=== PATIENT | male | born 1975 | race Caucasian/White ===

== ENCOUNTER 2021-09-14 08:44 | Outpatient (REF) | payer BC, SELFPAY ==
[2021-09-14 09:41] LABS: Basophils Percent Auto 0.5 % (0-2); Eosinophils Absolute Auto 0.1 X10*3/uL (0.0-0.4); Eosinophils Percent Auto 2.5 % (0-4); Hematocrit 47.4 % (42.0-52.0); Hemoglobin 15.6 g/dl (14.0-18.0); Imm Gran Abs Auto 0.02 X10*3/uL (0.00-0.03); Imm Gran Pct Auto 0.5 % (0.0-0.4); Lymphocytes Absolute Auto 1.2 X10*3/uL (1.2-4.9); Lymphocytes Percent Auto 27.3 % (20-40); MANUAL DIFF FLAG SCAN; Mean Corpuscular HGB Conc 32.9 g/dl (31.0-36.0); Mean Corpuscular Hemoglobin 29.9 pg (27.0-33.0); Mean Corpuscular Volume 90.8 fL (80.0-98.0); Mean Platelet Volume 12.9 fL (9.4-12.4); Monocytes Percent Auto 23.1 % (2-11); Neutrophils Percent Auto 46.1 % (45-73); Platelet Count 142 X10*3/uL (160-400); Red Blood Count 5.22 X10*6/uL (4.60-5.80); Red Cell Distribution Width 11.8 % (11.0-16.0); SCAN SMEAR FLAG 1; White Blood Count 4.3 X10*3/uL (4.8-10.8)
[2021-09-14 10:28] LABS: Alanine Aminotransferase 39 U/L (0-40); Albumin Level 4.2 g/dL (3.5-5.0); Alkaline Phosphatase 58 U/L (39-117); Anion Gap 12 (12-20); Aspartate Amino Transferase 24 U/L (5-37); Bilirubin Total 0.9 mg/dL (0.0-1.0); Blood Urea Nitrogen 20 mg/dL (9-16); Calcium 9.2 mg/dL (8.4-10.2); Carbon Dioxide 30 mmol/L (22-29); Chloride 103 mmol/L (96-108); Cholesterol 149 mg/dL; Estimated Glomerular Filt Rate > 60; Glucose Fasting 94 mg/dL (60-99); HDL Cholesterol 47 mg/dL; LDL Cholesterol Calculated 92 mg/dl; Potassium 3.9 mmol/L (3.3-5.1); Sodium 141 mmol/L (135-145); Total Protein 6.9 g/dL (6.5-8.0); Triglycerides 52 mg/dL
[2021-09-14 10:37] LABS: SLIDE REVIEW VERIFIED
== END 2021-09-14 08:45 | disposition home or self-care (01) ==
LOC: HO.LAB 08:44
PROVIDERS: PCP Internal Medicine; Visit Provider Internal Medicine
DX: Z00.00 Encounter for general adult medical examination without abnormal findings (principal); Z13.0 Encounter for screening for diseases of the blood and blood-forming organs and certain disorders involving the immune mechanism
CPT/HCPCS: 36415; 80053; 80061; 85025

== ENCOUNTER → 2022-04-11 15:55 | Outpatient (REF) | payer BC, SELFPAY | LOC: HO.SL 15:55 | PROVIDERS: PCP Internal Medicine; Visit Provider Internal Medicine | DX: G47.33 Obstructive sleep apnea (adult) (pediatric) (principal) | CPT/HCPCS: 95806 ==

== ENCOUNTER 2023-06-20 12:43 | Outpatient (AMB) | payer BC, SELFPAY ==
[2023-06-20 12:44] VITALS: BP 110/70; PULSE 70; O2SAT 97; BMI 30.5
--- NOTE | 2023-06-20 12:44 | A.OFFPC_ITS ---
Vital Signs 06/20/23 12:44 Height 6 ft Weight 225 lb BMI 30.5 BP 110/70 Blood Pressure Location Lt brachial Position Sitting Pulse 70 Pulse Source Pulse Oximeter Pulse Oximetry (%) 97 Oxygen Delivery Method Room Air Intake Visit Reasons: Annual Exam [place] Required: No Farm Agent: Not Required per policy Accompanied by: Self / Same As Patient Allergies penicillin V Allergy (Unknown, Verified 06/20/23 12:45) Unknown Medication List - Last Reconciled 06/20/23 by Nj Strickland MD aspirin 81 mg PO DAILY lisinopril 20 mg PO DAILY Tobacco use date assessed: 06/20/23 Dental Screening Dental Screen Date: 06/20/23 Did you have a dental visit in the last 12 months?: No Did you have a dental problem in the last 6 months where you did not have access to dental care?: No Was dental information given to patient?: Patient has dentist HPI Annual Exam HPI Details HTN on Rx; doing well PFSH Medical History Obesity Hypertension Surgical History Previous back surgery Family History Mother No problems noted. Father No problems noted. Social History Housing: Condominium Patient Tobacco Use Status: Never used Tobacco e-Cigarette/Vaping Use: Never Used Second Hand Smoke Exposure: No service: No Current occupational status: employed Cognitive needs: No Hearing needs: No Vision needs: No Questionnaire PHQ-9 Over the last 2 weeks, how often have you been bothered by any of the following problems? 1. Little interest or pleasure in doing things: not at all 2. Feeling down, depressed, or hopeless: not at all 3. Trouble falling or staying asleep, or sleeping too much: not at all 4. Feeling tired or having little energy: not at all 5. Poor appetite or overeating: not at all 6. Feeling bad about yourself - or that you are a failure or have let yourself or your family down: not at all 7. Trouble concentrating on things, such as reading the newspaper or watching television: not at all 8. Moving or speaking so slowly that other people could have noticed. Or the opposite - being so fidgety or restless that you have been moving around a lot more than usual: not at all 9. Thoughts that you would be better off or of hurting yourself in some way: not at all Total score: 0 Depression Screening Interpretation: Negative Depression Screening Done: Yes 55873 - PHQ-9 Billing: Yes Source: Developed by Drs. Miguel Burleson, Tawnya Nava, Andrea Barnes and colleagues, with an educational adelso from [employer] Thrive Questionnaire Date Thrive assessed: 06/20/23 I am a: Patient What is your living situation today?: I have a steady place to live Within the past 12 months, did the food you bought not last and you didn't have the money to get more?: Never true Within the past 12 months, did you worry whether your food would run out before you got money to buy more?: Never true Do you have trouble paying for medicines?: No Do you have trouble getting transportation to medical appointments?: No Do you have trouble paying your heating and electricity bill?: No Do you have trouble taking care of your child, family member or friend?: No Do you have trouble with day-to-day activities such as bathing, preparing meals, shopping, managing finances, etc.?: No Are you currently unemployed and looking for a job?: No Are you interested in more education?: No Please select the resources that you would like help with: None AUDIT C Alcohol Use Questionnaire (AUDIT-C) 1. How often do you have a drink containing alcohol?: Monthly or less 2. How many drinks containing alcohol do you have on a typical day when you are drinking?: 1 or 2 3. How often do you have six or more drinks on one occasion?: Never Total Score: 1 Score Reviewed/Action Taken: Yes ROSE-7 AMB Questionnaire ROSE-7 Date ROSE - 7 assessed: 06/20/23 Feeling nervous, anxious, or on edge: 0 = Not at all Not being able to stop or control worryin = Not at all Worrying too much about different things: 0 = Not at all Trouble relaxin = Not at all Being so restless that it is hard to sit still: 0 = Not at all Becoming easily annoyed or irritable: 0 = Not at all Feeling afraid as if something awful might happen: 0 = Not at all Total ROSE-7 score (0-4 normal; 5-9 mild; 10-14 moderate; 15-21 severe): 0 Source: Developed by Drs. Miguel Burleson, Tawnya Nava, Andrea Barnes and colleagues, with an educational adelso from [employer] ROSE-7 Assessment Billing ROSE-7 Assessment Tool: ROSE-7 Assessment 26968 Review of Systems Const Denies chills, Denies fatigue, Denies headache(s) and Denies weight loss Eyes Denies change in vision, Denies diplopia and Denies eye pain ENT Denies vertigo, Denies dizziness, Denies headache(s) and Denies nasal discharge Card Denies chest pain, Denies rapid heart rate and Denies dyspnea on exertion Resp Denies chest congestion, Denies cough, Denies pain with cough and Denies dyspnea on exertion GI Denies abdominal pain, Denies hematochezia and Denies change in bowel habits Musc Denies myalgias, Denies arthralgias and Denies joint swelling Skin/Breast Denies lesions and Denies unusual bruising Neuro Denies vertigo, Denies dizziness, Denies headache(s) and Denies focal weakness Endo Denies fatigue Physical exam (Primary Care) Vital Signs: Last Vital Signs Pulse 70 06/20/23 12:44 BP 110/70 06/20/23 12:44 Pulse Ox 97 06/20/23 12:44 Oxygen Delivery Method Room Air 06/20/23 12:44 BMI result Body Mass Index 30.5 Tobacco/Smoking Status: Tobacco use Status Tobacco use date assessed 06/20/23 06/20/23 12:49 Patient Tobacco Use Status Never used Tobacco 06/20/23 12:49 e-Cigarette/Vaping Use Never Used 06/20/23 12:49 PHQ-9: PHQ-9 Score PHQ-9: Total score 0 06/20/23 12:49 Depression Screening Interpretation: Negative Thrive Assessment: Date of Thrive Assessment Date Thrive assessed 06/20/23 06/20/23 12:49 Const General: cooperative, healthy appearing and no acute distress Orientation/consciousness: oriented to person, oriented to place and oriented to time HENMT Head: Yes normal to inspection, Yes normocephalic and Yes atraumatic Mouth: Normal oral and palatal mucosa present and tongue normal Throat: Yes posterior oropharynx normal and Yes uvula midline Eyes General: appearance normal, both eyes and all related structures Neck Neck: Yes normal visual inspection, Yes full ROM and Yes no lymphadenopathy Thyroid: Thyroid normal Carotids: normal carotid upstroke Chest Chest palpation & inspection: normal inspection of the chest Resp Effort & Inspection: normal respiratory effort and able to speak in complete sentences Auscultation: clear to auscultation bilaterally Cardio Jugular venous distension: no JVD Palpation: normal PMI Rate: regular rate Rhythm: regular rhythm Heart sounds: S1 normal heart sound present and S2 normal heart sound present GI Inspection: Yes normal to inspection Palpation (GI): Soft to palpation and No hepatosplenomegaly present Auscultation: normal bowel sounds General: Yes no CVA tenderness Back/Spine/Pelvis Back: no CVA tenderness Skin General skin exam: no rashes or lesions noted Neuro General: oriented to person, oriented to place and oriented to time Extrem General: Yes normal to inspection and Yes full ROM Assessment and Plan Assessment & Plan (1) Physical exam: Code(s): Z00.00 - Encounter for general adult medical examination without abnormal findings Plan: do labs (2) Hypertension: Code(s): I10 - Essential (primary) hypertension Plan: stable; same rx Orders: Orders Comprehensive [place]. Panel Fast Today N28.9 - Disorder of kidney and ureter, unspecified Lipid Panel Today E78.5 - Hyperlipidemia, unspecified Complete Blood Count Auto Diff Today D64.9 - Anemia, unspecified HIV Ab/Ag Today Z20.2 - Contact with and (suspected) exposure to infections with a predominantly sexual mode of transmission Referrals Gastroenterology Referral Z12.11 - Encounter for screening for malignant neoplasm of colon Medications: New sildenafil (Viagra) administer 30 minutes to 4 hours before activity 50 mg PO DAILY PRN 20 tabs 4RF sexual activity Coding Level of Care Code Est Pt Prev Care 40-64y(07745) Diagnoses Physical exam Z00.00 Hypertension I10 Additional Codes ROSE-7 Assessment Billing - ROSE-7 Assessment Tool: ROSE-7 Assessment 84177 ([id number])
== END 2023-06-20 13:14 | disposition home or self-care (01) ==
PROVIDERS: PCP Internal Medicine; Visit Provider Internal Medicine
DX: Z00.00 Encounter for general adult medical examination without abnormal findings (principal); I10 Essential (primary) hypertension
CPT/HCPCS: 99396

== ENCOUNTER 2023-06-30 07:07 | Outpatient (REF) | payer BC, SELFPAY ==
[2023-06-30 08:16] LABS: Basophils Percent Auto 0.6 % (0-2); Eosinophils Absolute Auto 0.2 X10*3/uL (0.0-0.4); Eosinophils Percent Auto 4.1 % (0-4); Hematocrit 43.2 % (42.0-52.0); Hemoglobin 14.9 g/dl (14.0-18.0); Imm Gran Abs Auto 0.02 X10*3/uL (0.00-0.03); Imm Gran Pct Auto 0.4 % (0.0-0.4); Lymphocytes Absolute Auto 1.5 X10*3/uL (1.2-4.9); MANUAL DIFF FLAG SCAN; Mean Corpuscular HGB Conc 34.5 g/dl (31.0-36.0); Mean Corpuscular Hemoglobin 30.3 pg (27.0-33.0); Mean Platelet Volume 12.4 fL (9.4-12.4); Monocytes Absolute Auto 0.6 X10*3/uL (0.1-1.2); Monocytes Percent Auto 12.6 % (2-11); Neutrophils Absolute Auto 2.5 x10*3/uL (2.0-8.3); Neutrophils Percent Auto 51.3 % (45-73); Platelet Count 192 X10*3/uL (160-400); Red Blood Count 4.91 X10*6/uL (4.60-5.80); Red Cell Distribution Width 11.4 % (11.0-16.0); SCAN SMEAR FLAG 1; White Blood Count 4.9 X10*3/uL (4.8-10.8)
[2023-06-30 08:33] LABS: Alanine Aminotransferase 38 U/L (0-40); Albumin Level 4.3 g/dL (3.5-5.0); Alkaline Phosphatase 57 U/L (39-117); Anion Gap 14 (12-20); Aspartate Amino Transferase 27 U/L (5-37); Bilirubin Total 0.6 mg/dL (0.0-1.0); Blood Urea Nitrogen 22 mg/dL (9-16); Calcium 9.4 mg/dL (8.4-10.2); Carbon Dioxide 27 mmol/L (22-29); Chloride 104 mmol/L (96-108); Cholesterol 107 mg/dL (<200); Estimated Glomerular Filt Rate > 60; Glucose Fasting 109 mg/dL (60-99); HDL Cholesterol 36 mg/dL (>40); LDL Cholesterol Calculated 61 mg/dL (<100); Potassium 5.1 mmol/L (3.3-5.1); SLIDE REVIEW VERIFIED; Sodium 140 mmol/L (135-145); Total Protein 7.3 g/dL (6.5-8.0); Triglycerides 52 mg/dL (<150)
[2023-07-02 04:14] LABS: HIV AB/AG Nonreactive (Nonreactive); HIV Num 1 0.05 S/CO (0.00-0.99)
== END 2023-06-30 07:08 | disposition home or self-care (01) ==
LOC: HO.LAB 07:07
PROVIDERS: PCP Internal Medicine; Visit Provider Internal Medicine
DX: D64.9 Anemia, unspecified (principal); N28.9 Disorder of kidney and ureter, unspecified; E78.5 Hyperlipidemia, unspecified; Z20.2 Contact with and (suspected) exposure to infections with a predominantly sexual mode of transmission
CPT/HCPCS: 36415; 80053; 80061; 85025; 87389

== ENCOUNTER 2024-02-01 09:42 | Day surgery (SDC) | payer BC, SELFPAY ==
[2024-01-30 14:37] VITALS: BMI 29.7
--- NOTE | 2024-01-31 12:59 | HO.ANESPROP2 ---
Documented by User: Felicia Goncalves NP 01/31/24 12:59 HPI - Anesthesia Eval Consult details Narrative: 48yo M for Colonoscopy [facility] Active Problems Active Problems: All Active Problems Physical exam (Acute) Disturbance, sleep (Acute) Upper respiratory tract infection (Acute) Obesity (Acute) Hypertension (Acute) Past Medical History Medical History (Updated 01/30/24 @ 14:33 by Lidya Vila RN) Back pain Obesity Hypertension Family History Family History Mother No problems noted. Father No problems noted. Surgical History Surgical History (Updated 01/30/24 @ 14:33 by Lidya Vila RN) History of nasal surgery History of ear surgery Previous back surgery Social History Social [facility] Patient Tobacco Use Status: Never used Tobacco e-Cigarette/Vaping Use: Never Used Second Hand Smoke Exposure: No Advance Directives: No Advance Directives Information Provided: Yes service: No Current occupational status: employed Cognitive needs: No Hearing needs: No Vision needs: No Meds Allergies Allergy/AdvReac Type Severity Reaction Status Date / Time penicillin V Allergy Unknown Unknown Verified 02/01/24 10:06 Home Medications ?Medication ?Instructions ?Recorded ?Confirmed ?Last Taken ?Type aspirin 81 mg chewable tablet 81 mg PO DAILY 09/16/21 02/01/24 02/01/24 History Exam Height,Weight and Vital Signs: Height 6 ft Weight 99.337 kg Assessment and Plan Assessment Anesthesia Assessment: Chart Reviewed Documented by User: Monique Powell MD 02/01/24 10:24 [facility] Past Medical History Medical History (Updated 01/30/24 @ 14:33 by Lidya Vila RN) Back pain Obesity Hypertension Family History Family History Mother No problems noted. Father No problems noted. Family history of problems with anesthesia: No Surgical History Surgical History (Updated 01/30/24 @ 14:33 by Lidya Vila RN) History of nasal surgery History of ear surgery Previous back surgery History of Problems with Anesthesia: No Social History Social History [facility] Patient Tobacco Use Status: Never used Tobacco e-Cigarette/Vaping Use: Never Used Second Hand Smoke Exposure: No Advance Directives: No Advance Directives Information Provided: Yes service: No Current occupational status: employed Cognitive needs: No Hearing needs: No Vision needs: No Meds Allergies Allergy/AdvReac Type Severity Reaction Status Date / Time penicillin V Allergy Unknown Unknown Verified 02/01/24 10:06 Home Medications ?Medication ?Instructions ?Recorded ?Confirmed ?Last Taken ?Type aspirin 81 mg chewable tablet 81 mg PO DAILY 09/16/21 02/01/24 02/01/24 History Exam Airway Mallampati Class: III TM Dist: >3cm Denture: Upper Assessment and Plan Assessment Anesthesia Assessment: Anesthesia Plan Discussed Final Anesthetic Review Family History of Problems with Anesthesia: No History of Problems with Anesthesia: No NPO: Yes ASA Class: II Final Preanesthetic Review: No Changes in Pt Med Stat, Meds/Allgs Chart Reviewed, Consent Obtained/Reviewed and Anes Risks/Benef Reviewed Patient Risk: Low Procedure Risk: Low Anesthetic Plan Anesthetic Plan: TIVA Disposition: Standard PACU
[2024-02-01 10:25] VITALS: BP 129/66; PULSE 72; RESP 16; TEMP 36.5; O2SAT 99
[2024-02-01] MEDS: Lactated Ringers 1,000 ML 100 ML IVCONT (10:45)
--- NOTE | 2024-02-01 11:37 | P.BOP_ITS ---
Brief Operative Note Date of Service: 02/01/24 Pre-op diagnosis: Screening Post-op diagnosis: other (Internal hemorrhoids) Procedure: Colonoscopy to the cecum and TI Surgeon: Miguel Arroyo MD Anesthesia: MAC Was an Gas Compressor Turbine Operator used for this Procedure?: No Estimated blood loss (mL): 0 Pathology: none sent Condition: stable Disposition: PACU
[2024-02-01 11:38] VITALS: BP 88/50; PULSE 65; RESP 15; TEMP 36.1; O2SAT 95
--- NOTE | 2024-02-01 11:39 | PC.NURSE ---
24hr update documented on paper
[2024-02-01 11:58] VITALS: BP 98/71; PULSE 63; RESP 20; O2SAT 96
--- NOTE | 2024-02-01 23:53 | OP_ITS ---
DATE OF SERVICE: 02/01/2024 SURGEON: Miguel Arroyo MD INDICATIONS: The patient presents for evaluation of colorectal cancer screening. Full consent has been obtained from him for this, including risks of bleeding and perforation. PREOPERATIVE DIAGNOSIS: Colorectal cancer screening. POSTOPERATIVE DIAGNOSIS: PROCEDURE PERFORMED: Colonoscopy to the cecum and terminal ileum. ESTIMATED BLOOD LOSS: COMPLICATIONS: ANESTHESIA: Medication used, monitored anesthesia care. ASSISTANTS: SPECIMENS: POSTOPERATIVE DIAGNOSES: Colorectal cancer screening, occasional sigmoid diverticulosis, small internal hemorrhoids. DESCRIPTION OF PROCEDURE: The patient was placed in the left lateral decubitus position. The digital rectal exam revealed no abnormalities. The Olympus video pediatric colonoscope was entered into the rectum and advanced easily to the cecum. Once in the cecum, I did identify normal-appearing cecal pouch with appendiceal orifice and a normal-appearing ileocecal valve. The terminal ileum was cannulated and appeared normal. The scope was withdrawn back in the colon. The entire cecum and ileocecal valve appeared normal. The scope was slowly withdrawn assessing all mucosal surfaces carefully. Preparation was excellent. I did not visualize any sign of polyps, colitis, nor angiodysplasia. There was an occasional diverticulum in the sigmoid colon. In the rectum, scope was retroflexed, visualizing small internal hemorrhoids, but no other pathology. The rectal mucosa appeared normal. Scope was straightened and withdrawn from the patient. He tolerated the procedure well and was returned to the recovery area in stable condition. IMPRESSION: 1. Occasional sigmoid diverticulosis. 2. Small internal hemorrhoids. PLAN: Given his negative exam and negative family history, I would recommend a followup coloscopy in 10 years for further screening. He will otherwise see me on a p.r.n. basis. MD DEMETRIO Veras/ARABELLA / [phone]
== END 2024-02-01 12:26 | disposition home or self-care (01) ==
PROVIDERS: PCP Internal Medicine; Visit Provider Internal Medicine
PROC: 0DJD8ZZ Inspection of Lower Intestinal Tract, Via Natural or Artificial Opening Endoscopic (ICD-10-PCS; CPT 45378; principal; 2024-02-01 11:10)
DX: Z12.11 Encounter for screening for malignant neoplasm of colon (principal); K57.30 Diverticulosis of large intestine without perforation or abscess without bleeding; K64.8 Other hemorrhoids; I10 Essential (primary) hypertension; Z79.899 Other long term (current) drug therapy; Z88.0 Allergy status to penicillin; Z98.890 Other specified postprocedural states
CPT/HCPCS: 45378; J2704

== ENCOUNTER 2024-06-23 13:03 | Outpatient (AMB) | payer BC, SELFPAY ==
[2024-06-23 13:08] VITALS: BP 100/78; PULSE 72; O2SAT 98; BMI 31.1
--- NOTE | 2024-06-23 13:08 | A.OFFPC_ITS ---
Vital Signs 06/23/24 13:08 Height 6 ft Weight 229 lb BMI 31.1 BP 100/78 Blood Pressure Location Lt brachial Position Sitting Pulse 72 Pulse Source Pulse Oximeter Pulse Oximetry (%) 98 Oxygen Delivery Method Room Air Intake Visit Reasons: ANNUAL Community Resource Consultant Required: No Accompanied by: Self / Same As Patient Allergies penicillin V Allergy (Unknown, Verified 06/23/24 13:08) Unknown Medication List - Last Reconciled 06/23/24 by Nj Strickland MD aspirin 81 mg PO DAILY cyclobenzaprine 10 mg PO TID PRN lisinopril 20 mg PO DAILY sildenafil (Viagra) 50 mg PO DAILY PRN Tobacco use date assessed: 06/23/24 Dental Screening Dental Screen Date: 06/23/24 Did you have a dental visit in the last 12 months?: Yes Did you have a dental problem in the last 6 months where you did not have access to dental care?: No Was dental information given to patient?: Patient has dentist HPI ANNUAL HPI Details HTN on Rx; doing well [facility] Medical History (Updated 01/30/24 @ 14:33 by Lidya Vila RN) Back pain Obesity Hypertension Surgical History History of nasal surgery History of ear surgery Previous back surgery Family History Mother No problems noted. Father No problems noted. Social History Housing: Condominium Patient Tobacco Use Status: Never used Tobacco e-Cigarette/Vaping Use: Never Used Second Hand Smoke Exposure: No service: No Current occupational status: employed Cognitive needs: No Hearing needs: No Vision needs: No Questionnaire PHQ-9 Over the last 2 weeks, how often have you been bothered by any of the following problems? 1. Little interest or pleasure in doing things: not at all 2. Feeling down, depressed, or hopeless: not at all 3. Trouble falling or staying asleep, or sleeping too much: not at all 4. Feeling tired or having little energy: not at all 5. Poor appetite or overeating: not at all 6. Feeling bad about yourself - or that you are a failure or have let yourself or your family down: not at all 7. Trouble concentrating on things, such as reading the newspaper or watching television: not at all 8. Moving or speaking so slowly that other people could have noticed. Or the opposite - being so fidgety or restless that you have been moving around a lot more than usual: not at all 9. Thoughts that you would be better off or of hurting yourself in some way: not at all Total score: 0 Source: Developed by Drs. Miguel Burleson, Tawnya Nava, Andrea Barnes and colleagues, with an educational adelso from [employer]. Thrive Questionnaire Date Thrive assessed: 06/23/24 I am a: Patient What is your living situation today?: I have a steady place to live Within the past 12 months, did the food you bought not last and you didn't have the money to get more?: I choose not to answer this question Within the past 12 months, did you worry whether your food would run out before you got money to buy more?: Never true Do you have trouble paying for medicines?: No Do you have trouble getting transportation to medical appointments?: No Do you have trouble paying your heating and electricity bill?: No Do you have trouble taking care of your child, family member or friend?: No Do you have trouble with day-to-day activities such as bathing, preparing meals, shopping, managing finances, etc.?: No Are you currently unemployed and looking for a job?: No Are you interested in more education?: No Please select the resources that you would like help with: None Currently or been in a relationship where the following occur: I choose not to answer THRIVE Score: 0 AUDIT C Alcohol Use Questionnaire (AUDIT-C) 1. How often do you have a drink containing alcohol?: Monthly or less 2. How many drinks containing alcohol do you have on a typical day when you are drinking?: 1 or 2 3. How often do you have six or more drinks on one occasion?: Never Total Score: 1 ROSE-7 AMB Questionnaire ROSE-7 Date ROSE - 7 assessed: 06/23/24 Feeling nervous, anxious, or on edge: 0 = Not at all Not being able to stop or control worryin = Not at all Worrying too much about different things: 0 = Not at all Trouble relaxin = Not at all Being so restless that it is hard to sit still: 0 = Not at all Becoming easily annoyed or irritable: 0 = Not at all Feeling afraid as if something awful might happen: 0 = Not at all Total ROSE-7 score (0-4 normal; 5-9 mild; 10-14 moderate; 15-21 severe): 0 Source: Developed by Drs. Miguel Burleson, Tawnya Nava, Andrea Barnes and colleagues, with an educational adelso from [employer]. Review of Systems Const Denies chills, Denies fatigue, Denies headache(s) and Denies weight loss Eyes Denies change in vision, Denies diplopia and Denies eye pain ENT Denies vertigo, Denies dizziness, Denies headache(s) and Denies nasal discharge Card Denies chest pain, Denies rapid heart rate and Denies dyspnea on exertion Resp Denies chest congestion, Denies cough, Denies pain with cough and Denies dyspnea on exertion GI Denies abdominal pain, Denies hematochezia and Denies change in bowel habits Musc Denies myalgias, Denies arthralgias and Denies joint swelling Skin/Breast Denies lesions and Denies unusual bruising Neuro Denies vertigo, Denies dizziness, Denies headache(s) and Denies focal weakness Endo Denies fatigue Physical exam (Primary Care) Vital Signs: Last Vital Signs Pulse 72 06/23/24 13:08 BP 100/78 06/23/24 13:08 Pulse Ox 98 06/23/24 13:08 Oxygen Delivery Method Room Air 06/23/24 13:08 BMI result Body Mass Index 31.1 Tobacco/Smoking Status: Tobacco use Status Tobacco use date assessed 06/23/24 06/23/24 13:12 Patient Tobacco Use Status Never used Tobacco 06/23/24 13:12 e-Cigarette/Vaping Use Never Used 06/23/24 13:12 PHQ-9: PHQ-9 Score PHQ-9: Total score 0 06/23/24 13:12 Thrive Assessment: Date of Thrive Assessment Date Thrive assessed 06/23/24 06/23/24 13:12 Currently or been in a relationship where the following occur: I choose not to answer Const General: cooperative, healthy appearing and no acute distress Orientation/consciousness: oriented to person, oriented to place and oriented to time HENMT Head: Yes normal to inspection, Yes normocephalic and Yes atraumatic Mouth: Normal oral and palatal mucosa present and tongue normal Throat: Yes posterior oropharynx normal and Yes uvula midline Eyes General: appearance normal, both eyes and all related structures Neck Neck: Yes normal visual inspection, Yes full ROM and Yes no lymphadenopathy Thyroid: Thyroid normal Carotids: normal carotid upstroke Chest Chest palpation & inspection: normal inspection of the chest Resp Effort & Inspection: normal respiratory effort and able to speak in complete sentences Auscultation: clear to auscultation bilaterally Cardio Jugular venous distension: no JVD Palpation: normal PMI Rate: regular rate Rhythm: regular rhythm Heart sounds: S1 normal heart sound present and S2 normal heart sound present GI Inspection: Yes normal to inspection Palpation (GI): Soft to palpation and No hepatosplenomegaly present Auscultation: normal bowel sounds General: Yes no CVA tenderness Back/Spine/Pelvis Back: no CVA tenderness Skin General skin exam: no rashes or lesions noted Neuro General: oriented to person, oriented to place and oriented to time Extrem General: Yes normal to inspection and Yes full ROM Coding Level of Care Code Est Pt Prev Care 40-64y(64880) Diagnoses Physical exam Z00.00 Hypertension I10 Assessment & Plan Assessment & Plan (1) Physical exam: Code(s): Z00.00 - Encounter for general adult medical examination without abnormal findings Category: Medical Plan: stable; do labs (2) Hypertension: Code(s): I10 - Essential (primary) hypertension Category: Medical Plan: same rx Orders: Orders Lipid Panel Today Z13.220 - Encounter for screening for lipoid disorders Thyroid Stimulating Hormone Today Z13.29 - Encounter for screening for other suspected endocrine disorder Complete Blood Count Auto Diff Today Z13.0 - Encounter for screening for diseases of the blood and blood-forming organs and certain disorders involving the immune mechanism Comprehensive [place]. Panel Fast Today Z13.9 - Encounter for screening, unspecified Medications: Refilled cyclobenzaprine 10 mg PO TID PRN 30 tabs 2RF muscle spasm
--- OUTSIDE RECORDS SUMMARY | 2024-06-25 15:33 | XMS_ITS ---
Author Organization [facility] Address [address] [place] [address] Care Team Providers Care Metrologist Name Role Phone Em ABREU, Nj Primary Care Provider Miguel Tucker Unavailable [phone] ALLERGIES Allergen (clinical drug ingredient) Drug/Non Drug Allergy documented on EMR Reaction Allergy Type Onset Date Status Penicillin Unknown Drug Allergy Active REASON FOR VISIT Patient presents today for a colon screening MEDICATIONS Medication SIG (Take, Route, Frequency, Duration) Notes [...] TH EVERY DAY Oral for 30 Active IMMUNIZATIONS Vaccine Route Administration Date Status Comme nts Influenza Unknown 10/24/2023 Refused SOCIAL HISTORY Tobacco Use: Social History Observation Description Date Details (start date - stop date) Never Smoker NA - NA Sex Assigned At : Social History Observation Description Sex Assigned At Unknown Tobacco Use/Smoking Question Answer Notes Patient is [...] Never (0 point) Points 1 Interpretation Negative PROBLEMS Problem Type ICD Code Onset Dates Problem Status W/U Status Risk SNOMED Code Notes Problem Colon cancer screening (Z12.11) Active confirmed Colon cancer screening (953181278) Problem Encounter for other preprocedural examination (Z01.818) Active confirmed Pre-procedure evaluation check (383150563) VITAL SIGNS BMI 29.70 kg/m2 10/24/2023 Blood pressure systolic 000 mm Hg 10/24/19 24 Blood pressure diastolic 00 mm Hg 024 Height 6 ft in 10/24/2023 Temperature 98.7 degrees Fahrenheit 10/24/19 24 Weight 219 lbs 10/24/2023 Encounters Encounter Location Date Provider Diagnosis [facility] [address] [place] [address] 10/24/2023 Miguel Arroyo Colon cancer screeni ng Z12.11 and Encounter for other preprocedural examination Z01.818 ASSESSMENTS Encounter Date Diagnosis Assessment Notes Treatment Notes Treatment Clinical Notes 10/24/2023 Colon cancer screening (ICD-10 - Z12.11) 10/24/2023 Encounter for other preprocedural examination (ICD-10 - Z01.818) PLAN OF TREATMENT Future Test Test Name Order Date COLONOSCOPY 10/24/2023 Next Appt Details Follow Up: prn, Reason: Progress Notes * Examination Category Sub-Category Detail Notes General Examination GENERAL APPEARANCE: pleasant , well [...]
--- OUTSIDE RECORDS SUMMARY | 2024-06-25 15:33 | XMS_ITS ---
Author Organization [facility] Address [address] [place] [address] Care Team Providers Care Housekeeping Staff Name Role Phone Em ABREU, Nj Primary Care Provider Miguel Tucker Unavailable [phone] REASON FOR VISIT screening colon PROBLEMS Problem Type ICD Code Onset Dates Problem Status W/U Status Risk SNOMED Code Notes Problem Diverticulosis of large intestine without perforation or abscess without bleeding (K57.30) Active confirmed Diverticul ar disease of colon (039635166) Encounters Encounter Location Date Provider Diagnosis [facility] [place] [address] [phone] [place]/01/2024 Miguel Arroyo Colon cancer scree naheed Z12.11 ; Diverticulosis of large intestine without perforation or abscess without bleeding K57.30 and Other hemorrhoids K64.8 ASSESSMENTS Encounter Date Diagnosis Assessment Notes Treatment Notes Treatment Clinical Notes 02/01/2024 Colon cancer screening (ICD-10 - Z12.11) 02/01/2024 Diverticulosis of large intestine without perforation or abscess without bleeding (ICD-10 - K57.30) 02/01/2024 Other hemorrhoids (ICD-10 - K64.8) PLAN OF TREATMENT No Information
--- OUTSIDE RECORDS SUMMARY | 2024-06-25 15:33 | XMS_ITS | Patient Health Record ---
Author Organization [facility] Address [address] [place] [address] Care Team Providers Care Hospital Aide Name Role Phone Nj Strickland MD Primary Care Provider Miguel Tucker Unavailable [phone] ALLERGIES Allergen (clinical drug ingredient) Drug/Non Drug Allergy documented on EMR Reaction Allergy Type Onset Date Status Penicillin Unknown Drug Allergy Active REASON FOR REFERRAL No Information MEDICATIONS Medication SIG (Take, Route, Frequency, Duration) [...] Colon cancer screening (Z12.11) Active confirmed Colon can cer screening (946421907) Problem Encounter for other preprocedural examination (Z01.818) Active confirmed Pre-procedure evaluation check (675328894) Problem Diverticulosis of large intestine without perforation or abscess without bleeding (K57.30) Active confirmed Diverticul ar disease of colon (521995492) VITAL SIGNS Temperature 98.7 degrees Fahrenheit 10/24/2023 Blood pressure diastolic 00 mm Hg 10/24/2023 Height 6 ft in 10/24/2023 Blood pressure systolic 000 mm Hg 10/24/2023 Weight 219 lbs 10/24/2023 BMI 29.70 kg/m2 10/24/2023 Encounters Encounter Location Date Provider Diagnosis [facility] [place] [address] [place], [place] [phone] 02/01/2024 Miguel Arroyo Colon cancer screeni ng Z12.11 ; Diverticulosis of large intestine without perforation or abscess without bleeding K57.30 and Other hemorrhoids K64.8 [facility] [address] [place] [address] 10/24/2023 Miguel Arroyo Colon cancer screeni ng Z12.11 and Encounter for other preprocedural examination Z01.818 ASSESSMENTS Encounter Date Diagnosis Assessment Notes Treatment Notes Treatment Clinical Notes 02/01/2024 Colon cancer screening (ICD-10 - Z12.11) 02/01/2024 Diverticulosis of large intestine without perforation or abscess without bleeding (ICD-10 - K57.30) 10/24/2023 Colon cancer screening (ICD-10 - Z12.11) 10/24/2023 Encounter for other preprocedural examination (ICD-10 - Z01.818) 02/01/2024 Other hemorrhoids (ICD-10 - K64.8) PLAN OF TREATMENT Future Test Test Name Order Date COLONOSCOPY 10/24/2023 Insurance Providers Payer Name Payer Address Payer Phone Subscriber Number Group Number Insured Name Patient Relationship to Insured Coverage Start Date Coverage End Date [employer] [address] [place] [address] [phone] [id number] OLGA SARAVIA Self - patient is the insured MEDICAL (GENERAL) HISTORY Medical History History ICD Code HTN Back pain Denies [place],DM,CVA,Lung disease,renal dise ase Surgical History Surgery Date(Month/Year) Back surgery 2009 Back surgery 2011 Ear surgery as a child Nasal polyps
== END 2024-06-23 13:24 | disposition home or self-care (01) ==
PROVIDERS: PCP Internal Medicine; Visit Provider Internal Medicine
DX: Z00.00 Encounter for general adult medical examination without abnormal findings (principal); I10 Essential (primary) hypertension

== ENCOUNTER → 2024-06-23 13:03 | Outpatient (BNVA) | payer BC, SELFPAY | PROVIDERS: PCP Internal Medicine; Visit Provider Internal Medicine ==

== ENCOUNTER 2024-06-29 20:11 | Emergency (ER) | payer BC, SELFPAY ==
--- NOTE | ~2024-06-29 | XR_ITS ---
EXAMINATION: XR ABDOMEN KUB CLINICAL INDICATION: Constipation. COMPARISON: None available. TECHNIQUE: AP view of the abdomen. FINDINGS: Nonobstructive bowel gas pattern. Mild stool burden. No abnormal soft tissue calcification. No acute osseous abnormality. XR/XR KUB IMPRESSION: Mild stool burden. Electronically signed by: Huber Encarnacion MD 06/29/2024 09:06 PM [facility]
--- NOTE | ~2024-06-29 | CT_ITS ---
EXAMINATION: CT ABDOMEN AND PELVIS WITHOUT CONTRAST CLINICAL INFORMATION: Lower abdominal pain. Evaluate for diverticulitis COMPARISON: X-rays of the abdomen performed same day TECHNIQUE: Multidetector volumetric imaging was performed from the superior aspect of the liver through the pubic symphysis. Sagittal and coronal reformatted images were obtained on the technologist's workstation. This CT examination was performed using dose optimization techniques as appropriate, variously including the following: *Automated exposure control *Adjustment of mA and/or kV according to patient size (this includes techniques or standardized protocols for targeted exams where dose is matched to indication/reason for exam; i.e. extremities or head) *Use of iterative reconstruction technique DLP: 732 mGy-cm FINDINGS: LUNG BASES: Bilateral atelectasis in the lingula. LIVER, GALLBLADDER, AND BILIARY TREE: There is mild decreased attenuation compatible with hepatic steatosis. There is a 5 mm hypodense lesion in the left lobe of the characterize but likely reflect simple cyst The gallbladder is unremarkable with no evidence of radiopaque gallstones, gallbladder wall thickening, or obvious pericholecystic inflammatory changes. PANCREAS: Unremarkable. SPLEEN: Unremarkable. ADRENAL GLANDS: Unremarkable. KIDNEYS AND URETERS: The kidneys are normal in size, shape, and attenuation. No hydronephrosis, hydroureter, or calculi seen. No perinephric stranding. BLADDER: Unremarkable. GASTROINTESTINAL TRACT: Large bowel: There is bowel wall thickening and pericolonic stranding throughout most of the large bowel most prominent in the ascending and transverse colon and sigmoid colon. There are scattered areas of diverticula throughout There is no focal mass. Appendix normal. Small bowel normal. stomach normal. ABDOMINAL WALL: Normal LYMPH NODES: Normal. VASCULAR: Minimal scattered arterial calcification throughout PELVIC VISCERA: Unremarkable. OSSEOUS STRUCTURES: Unremarkable. CT/CT abdomen pelvis wo IV con IMPRESSION: 1. Bowel wall thickening and pericolonic stranding throughout most of the large bowel compatible with colitis. 2. Scattered diverticula throughout the colon. 3. Hepatic steatosis. 4. Probable small cyst in the left lobe of the liver. 5. Minimal scattered arterial calcification. Fleischner guidelines were followed. Electronically signed by: Denzel Crews MD 06/29/2024 10:36 PM [facility]
--- OUTSIDE RECORDS SUMMARY | 2024-06-29 20:13 | XMS_ITS ---
Author Organization [facility] Address [address] [place] [address] Care Team Providers Care Strategic Marketing Manager Name Role Phone Em ABREU, Nj Primary Care Provider Miguel Tucker Unavailable [phone] ALLERGIES Allergen (clinical drug ingredient) Drug/Non Drug [...] screening (Z12.11) Active confirmed Colon cancer screening (236410665) Problem Encounter for other preprocedural examination (Z01.818) Active confirmed Pre-procedure evaluation check (316542071) VITAL SIGNS BMI 29.70 kg/m2 10/24/2023 Blood pressure systolic 000 mm Hg 10/24/19 24 Blood pressure diastolic 00 mm Hg 024 Height 6 ft in 10/24/2023 Temperature 98.7 degrees Fahrenheit 10/24/19 24 Weight 219 lbs 10/24/2023 Encounters Encounter Location Date Provider Diagnosis [facility] [address] [place] [address] 10/24/2023 Miguel Arroyo Colon cancer screeni ng [...]
--- OUTSIDE RECORDS SUMMARY | 2024-06-29 20:13 | XMS_ITS ---
Author Organization [facility] Address [address] [place] [address] Care Team Providers Care Protective Signal Installer Name Role Phone Em ABREU, Nj Primary Care Provider Miguel Tucker Unavailable [phone] REASON FOR VISIT screening colon PROBLEMS Problem Type ICD Code Onset Dates Problem Status W/U Status Risk SNOMED Code Notes Problem Diverticulosis of large intestine without perforation or abscess without bleeding (K57.30) Active confirmed Diverticul ar disease of colon (306569362) Encounters Encounter Location Date Provider Diagnosis [facility] [place] [address] [place], [place] [phone] 02/01/2024 Miguel Arroyo Colon cancer scree naheed [...]
--- OUTSIDE RECORDS SUMMARY | 2024-06-29 20:14 | XMS_ITS | Patient Health Record ---
Author Organization [facility] Address [address] [place] [address] Care Team Providers Care Wireless Team Member Name Role Phone Nj Strickland MD Primary Care Provider Miguel Tucker Unavailable [phone] ALLERGIES Allergen (clinical drug ingredient) Drug/Non Drug [...] (Z12.11) Active confirmed Colon can cer screening (291190925) Problem Encounter for other preprocedural examination (Z01.818) Active confirmed Pre-procedure evaluation check (981356682) Problem Diverticulosis of large intestine without perforation or abscess without bleeding (K57.30) Active confirmed Diverticul ar disease of colon (959909044) VITAL SIGNS Temperature 98.7 degrees Fahrenheit 10/24/2023 Blood pressure diastolic 00 mm Hg 10/24/2023 Height 6 ft in 10/24/2023 Blood pressure systolic 000 mm Hg 10/24/2023 Weight 219 lbs 10/24/2023 BMI 29.70 kg/m2 10/24/2023 Encounters Encounter Location Date Provider Diagnosis [facility] [place] [address] [phone] 02/01/2024 Miguel Arroyo Colon cancer screeni ng Z12.11 ; Diverticulosis of large intestine without perforation or abscess without bleeding K57.30 and Other hemorrhoids K64.8 [facility] [address] [place] [address] 10/24/2023 Miguel Arroyo Colon cancer screeni ng [...] Insured Coverage Start Date Coverage End Date [facility] [address] [place] [address] [id number] OLGA SARAVIA Self - patient is the insured MEDICAL (GENERAL) HISTORY Medical History History ICD Code HTN Back pain Denies [place],DM,CVA,Lung disease,renal dise ase Surgical History Surgery Date(Month/Year) Back surgery 2009 Back surgery 2011 Ear surgery as a child Nasal polyps
[2024-06-29 20:16] VITALS: BP 140/74; PULSE 85; RESP 16; TEMP 37.2; O2SAT 100; BMI 31.1
--- NOTE | 2024-06-29 20:16 | ED_ITS ---
HPI - Abdominal Pain General Chief Complaint: Abdominal Pain Stated Complaint: abd pain, constipation Time Seen by Provider: 06/29/24 21:06 Source: patient Mode of arrival: ambulatory Limitations: no limitations History of Present Illness ED Provider: HPI narrative: Patient's history of constipation has not moved his bowels for week complaining of pain in lower abdomen patient took 2 doses of the Colace and milk of magnesia with watery stool now but still has discomfort no prior history of constipation in the past patient has been eating and drinking normal no fever no chills Related Data Home Medications ?Medication ?Instructions ?Recorded ?Confirmed aspirin 81 mg chewable tablet 81 mg PO DAILY 09/16/21 06/23/24 Previous Rx's ?Medication ?Instructions ?Recorded sildenafil 50 mg tablet (Viagra) 50 mg PO DAILY PRN sexual activity 06/20/23 #20 tabs lisinopril 20 mg tablet 20 mg PO DAILY #30 tabs 12/02/23 cyclobenzaprine 10 mg tablet 10 mg PO TID PRN muscle spasm #30 06/23/24 tabs ciprofloxacin HCl 500 mg tablet 500 mg PO BID #20 tabs 06/29/24 (Cipro) metronidazole 500 mg tablet 500 mg PO TID #30 tabs 06/29/24 Allergies Allergy/AdvReac Type Severity Reaction Status Date / Time penicillin V Allergy Unknown Unknown Verified 06/29/24 20:21 Review of Systems Review of Systems Yes all other systems are reviewed and are negative PMF Past Medical History Medical History Back pain Obesity Hypertension Surgical History History of nasal surgery History of ear surgery Previous back surgery Family History Family History Mother No problems noted. Father No problems noted. Social History Social History Housing: Condominium Alcohol intake: never Patient Tobacco Use Status: Never used Tobacco Smoked in Last 30 Days: No e-Cigarette/Vaping Use: Never Used Second Hand Smoke Exposure: No Advance Directives: No Advance Directives Information Provided: No service: No Current occupational status: employed Cognitive needs: No Hearing needs: No Vision needs: No Physical Exam ED Vital Signs: Vital Signs - 24 hr 06/29/24 20:16 06/29/24 21:13 Temperature 98.9 F 98.3 F Pulse Rate 85 85 Respiratory Rate 16 16 Blood Pressure 140/74 H 129/83 Pulse Oximetry 100 97 Oxygen Delivery Method Room Air Room Air BMI result Body Mass Index 31.1 Appearance: Alert. Oriented X3. No acute distress. Eyes: PERRLA, No Nystagmus ENT: Pharynx normal. Oral Mucosa moist Neck: Normal inspection. Neck supple. CVS: Normal heart rate and rhythm. Pulses normal. Respiratory: No respiratory distress. Equal air entry bilateral, no wheezing/rales/rhonchi Abdomen: Soft and deep pelvic tenderness mostly on the left lower quadrant Bowel sounds are present, no mass palpable, no CVA tenderness Skin: Skin warm and dry. Normal skin color. Normal skin turgor. Extremities: No lower extremity edema. No calf tenderness Neuro: Oriented X 3. No motor deficit. No sensory deficit.No cerebellar signs , cranial nerves II-XII intact Course Course Course Narrative: This is an RME performed by Joaquín Jacques, JEWEL[employer] SALESPERSON: Additional HPI, ROS, PE not included below will be deferred to primary provider. patient is a 49-year-old male who presents emergency department for evaluation of lower abdominal pain, admits having constipation over the past week. Reports on he took 2 tablets of docusate, on Sunday took a laxative with small stools. Sunday morning he presented to urgent care, he was advised to purchase milk of magnesia [id number], reports that he took 60 mL, states that he has a small amount of liquid stool in small years of soft stool. denies history of chronic constipation. Denies hematochezia or melena. Denies any history of abdominal surgeries. Reports screening colonoscopy in February of 2024 which by his account was normal. Plan: Serum labs, KUB Medical Decision Making Medical Decision Making [facility] Narrative: Patient's lower abdominal pain with constipation with poor oral intake CT scan showed colitis with elevated WBC count will start patient on Flagyl and Cipro discharge patient home advised to follow with PCP Differential Diagnosis Differential Diagnoses: The differential diagnosis associated with the presentation includes Lab Data [facility] Lab Attestation statement: I reviewed the patient's lab results. 06/29/24 20:28 06/29/24 20:28 Labs: Lab Results 06/29/24 06/29/24 Range/Units 20:28 21:38 WBC 13.6 H (4.8-10.8) X10*3/uL RBC 5.17 (4.60-5.80) X10*6/uL Hgb 15.9 (14.0-18.0) g/dl Hct 45.7 (42.0-52.0) % MCV 88.4 (80.0-98.0) fL MCH 30.8 (27.0-33.0) pg MCHC 34.8 (31.0-36.0) g/dl RDW 11.4 (11.0-16.0) % Plt Count 214 (160-400) X10*3/uL MPV 11.7 (9.4-12.4) fL Immature Gran % (Auto) 0.4 (0.0-0.4) % Neut % (Auto) 77.5 H (45-73) % Lymph % (Auto) 9.2 L (20-40) % [place] % (Auto) 11.8 H (2-11) % Eos % (Auto) 0.7 (0-4) % Baso % (Auto) 0.4 (0-2) % Lymph # (Auto) 1.3 (1.2-4.9) X10*3/uL [place] # (Auto) 1.6 H (0.1-1.2) X10*3/uL Eos # (Auto) 0.1 (0.0-0.4) X10*3/uL Baso # (Auto) 0.1 (0.0-0.2) X10*3/uL Abs Immat Gran (auto) 0.06 H (0.00-0.03) X10*3/uL Absolute Neuts (auto) 10.6 H (2.0-8.3) x10*3/uL Absolute Nucleated RBC 0.000 (0.0-0.012) X10*3/uL Nucleated RBC % (auto) 0.0 (0.0-0.2) /100WBC Smear Tech's Comments VERIFIED Sodium 134 L (135-145) mmol/L Potassium 4.1 (3.3-5.1) mmol/L Chloride 100 (96-108) mmol/L Carbon Dioxide 28 (22-29) mmol/L Anion Gap 10 L (12-20) BUN 15 (9-16) mg/dL Creatinine 0.96 (0.5-1.4) mg/dL Estim Creat Clear Calc 114.7 Estimated GFR > 60 Random Glucose 121 H (60-115) mg/dL Calcium 8.4 D (8.4-10.2) mg/dL Total Bilirubin 0.6 (0.0-1.0) mg/dL AST 21 (5-37) U/L ALT 32 (0-40) U/L Alkaline Phosphatase 63 (39-117) U/L Total Protein 6.5 (6.5-8.0) g/dL Albumin 3.7 (3.5-5.0) g/dL Lipase 18 (8-78) U/L Urine Color Yellow Urine Appearance Clear Urine pH 6.0 (5.0-9.0) Ur Specific [place] 1.015 (1.005-1.025) Urine Protein Trace (Neg-Trace) mg/dL Urine Glucose (UA) Negative (Negative) mg/dL Urine Ketones Trace (Negative) mg/dL Urine Blood Negative (Negative) Urine Nitrite Negative (Negative) Ur Leukocyte Esterase Negative (Negative) Independent Interpretation I performed an independent interpretation of an: CT Scan Radiology Impression Discussion of test interpretation with radiology: I have reviewed the radiologist's reading. Radiologist Impression: [place] [id number] CT Scan Report Signed Patient: Kevin Mcdowell MR#: [id number] : 1975 Acct:[id number] Age/Sex: 49 / M ADM Date: 06/29/24 Loc: .ED Attending Dr: Ordering Physician: Mike Dorsey MD Date of Service: 06/29/24 Procedure(s): CT abdomen pelvis wo IV con Accession Number(s): [id number] cc: Nj Strickland MD; Mike Dorsey MD~ EXAMINATION: CT ABDOMEN AND PELVIS WITHOUT CONTRAST CLINICAL INFORMATION: Lower abdominal pain. Evaluate for diverticulitis COMPARISON: X-rays of the abdomen performed same day TECHNIQUE: Multidetector volumetric imaging was performed from the superior aspect of the liver through the pubic symphysis. Sagittal and coronal reformatted images were obtained on the technologist's workstation. This CT examination was performed using dose optimization techniques as appropriate, variously including the following: *Automated exposure control *Adjustment of mA and/or kV according to patient size (this includes techniques or standardized protocols for targeted exams where dose is matched to indication/reason for exam; i.e. extremities or head) *Use of iterative reconstruction technique DLP: 732 mGy-cm FINDINGS: LUNG BASES: Bilateral atelectasis in the lingula. LIVER, GALLBLADDER, AND BILIARY TREE: There is mild decreased attenuation compatible with hepatic steatosis. There is a 5 mm hypodense lesion in the left lobe of the characterize but likely reflect simple cyst The gallbladder is unremarkable with no evidence of radiopaque gallstones, gallbladder wall thickening, or obvious pericholecystic inflammatory changes. PANCREAS: Unremarkable. SPLEEN: Unremarkable. ADRENAL GLANDS: Unremarkable. KIDNEYS AND URETERS: The kidneys are normal in size, shape, and attenuation. No hydronephrosis, hydroureter, or calculi seen. No perinephric stranding. BLADDER: Unremarkable. GASTROINTESTINAL TRACT: Large bowel: There is bowel wall thickening and pericolonic stranding throughout most of the large bowel most prominent in the ascending and transverse colon and sigmoid colon. There are scattered areas of diverticula throughout There is no focal mass. Appendix normal. Small bowel normal. stomach normal. ABDOMINAL WALL: Normal LYMPH NODES: Normal. VASCULAR: Minimal scattered arterial calcification throughout PELVIC VISCERA: Unremarkable. OSSEOUS STRUCTURES: Unremarkable. CT/CT abdomen pelvis wo IV con IMPRESSION: 1. Bowel wall thickening and pericolonic stranding throughout most of the large bowel compatible with colitis. 2. Scattered diverticula throughout the colon. 3. Hepatic steatosis. 4. Probable small cyst in the left lobe of the liver. 5. Minimal scattered arterial calcification. Fleischner guidelines were followed. Electronically signed by: Denzel Crews MD 06/29/2024 10:36 PM [facility] Discharge Plan Discharge Clinical Impression: Colitis Patient Disposition: Home, Self-Care Instructions: Colitis (ED) Additional Instructions: Drink plenty of fluids Clear liquids advanced slowly Antibiotic as prescribed Follow up with your PCP Report to ER if better Prescriptions: New metronidazole 500 mg tablet 500 mg PO TID Qty: 30 0RF ciprofloxacin HCl [Cipro] 500 mg tablet 500 mg PO BID Qty: 20 0RF No Action lisinopril 20 mg tablet 20 mg PO DAILY Qty: 30 8RF aspirin 81 mg tablet,chewable 81 mg PO DAILY sildenafil [Viagra] 50 mg tablet 50 mg PO DAILY PRN (Reason: sexual activity) Qty: 20 4RF Rx Instructions: administer 30 minutes to 4 hours before activity cyclobenzaprine 10 mg tablet 10 mg PO TID PRN (Reason: muscle spasm) Qty: 30 2RF Print Language: [place] Citizen
[2024-06-29 20:33] LABS: Basophils Absolute Auto 0.1 X10*3/uL (0.0-0.2); Basophils Percent Auto 0.4 % (0-2); Eosinophils Absolute Auto 0.1 X10*3/uL (0.0-0.4); Eosinophils Percent Auto 0.7 % (0-4); Hematocrit 45.7 % (42.0-52.0); Hemoglobin 15.9 g/dl (14.0-18.0); Imm Gran Abs Auto 0.06 X10*3/uL (0.00-0.03); Imm Gran Pct Auto 0.4 % (0.0-0.4); Lymphocytes Absolute Auto 1.3 X10*3/uL (1.2-4.9); Lymphocytes Percent Auto 9.2 % (20-40); MANUAL DIFF FLAG SCAN; Mean Corpuscular HGB Conc 34.8 g/dl (31.0-36.0); Mean Corpuscular Hemoglobin 30.8 pg (27.0-33.0); Mean Corpuscular Volume 88.4 fL (80.0-98.0); Mean Platelet Volume 11.7 fL (9.4-12.4); Monocytes Absolute Auto 1.6 X10*3/uL (0.1-1.2); Monocytes Percent Auto 11.8 % (2-11); Neutrophils Absolute Auto 10.6 x10*3/uL (2.0-8.3); Neutrophils Percent Auto 77.5 % (45-73); Platelet Count 214 X10*3/uL (160-400); Red Blood Count 5.17 X10*6/uL (4.60-5.80); Red Cell Distribution Width 11.4 % (11.0-16.0); SCAN SMEAR FLAG 1; White Blood Count 13.6 X10*3/uL (4.8-10.8)
[2024-06-29 20:49] LABS: Alanine Aminotransferase 32 U/L (0-40); Albumin Level 3.7 g/dL (3.5-5.0); Alkaline Phosphatase 63 U/L (39-117); Anion Gap 10 (12-20); Aspartate Amino Transferase 21 U/L (5-37); Bilirubin Total 0.6 mg/dL (0.0-1.0); Blood Urea Nitrogen 15 mg/dL (9-16); Calcium 8.4 mg/dL (8.4-10.2); Carbon Dioxide 28 mmol/L (22-29); Chloride 100 mmol/L (96-108); Creatinine Clr Calc Pharmacy 114.7; Estimated Glomerular Filt Rate > 60; Glucose Random 121 mg/dL (60-115); Lipase 18 U/L (8-78); Potassium 4.1 mmol/L (3.3-5.1); Sodium 134 mmol/L (135-145); Total Protein 6.5 g/dL (6.5-8.0)
[2024-06-29 20:51] LABS: SLIDE REVIEW VERIFIED
[2024-06-29 21:13] VITALS: BP 129/83; PULSE 85; RESP 16; TEMP 36.8; O2SAT 97
[2024-06-29 21:44] LABS: Appearance Urine Clear; Color Urine Yellow; Glucose Urine UA Negative (Negative); Leukocyte Esterase Urine Negative (Negative); Nitrite Urine Negative (Negative); Specific Gravity - Urine 1.015 (1.005-1.025); Urine Blood Negative (Negative); Urine Ketones Trace mg/dL (Negative); Urine Protein Trace mg/dL (Neg-Trace)
[2024-06-29] MEDS: metroNIDAZOLE 500 MG TABLET PO (23:53)
[2024-06-29] MEDS: levoFLOXacin 500 MG TABLET PO (23:53)
[2024-06-29 23:54] VITALS: BP 129/83; PULSE 85; RESP 16; TEMP 36.8; O2SAT 97
== END 2024-06-29 23:56 | disposition home or self-care (01) ==
PROVIDERS: Nurse Practitioner Family; Emergency Provider Internal Medicine; PCP Internal Medicine
DX: K52.9 Noninfective gastroenteritis and colitis, unspecified (principal); R10.2 Pelvic and perineal pain; K59.00 Constipation, unspecified; Z79.899 Other long term (current) drug therapy
CPT/HCPCS: 36415; 74018; 74176; 80053; 81003; 83690; 85025; 99284

== ENCOUNTER 2024-12-31 09:58 | Outpatient (AMB) | payer BC, SELFPAY ==
--- OUTSIDE RECORDS SUMMARY | 2023-10-24 12:00 | XMS_ITS ---
Author Organization [facility] Address [address] [place] [id number] Care Team Providers Care Supervisor Small Appliance Assembly Name Role Phone Em ABREU, Nj Primary Care Provider Miguel Tucker Unavailable [phone] Allergies Allergen (clinical drug ingredient) Drug/Non Drug Allergy documented on EMR Reaction Allergy Type Onset Date Status Penicillin Unknown Drug Allergy Active REASON FOR VISIT Patient presents today for a colon screening Medications Medication SIG (Take, Route, Frequency, Duration) Notes Start Date End Date Status Cyclobenzaprine HCl 10 MG TAKE 1 TABLET BY MOUTH 3 TIMES A DAY NEEDED FOR MUSCLE SPASM Oral for 10 Active Sildenafil Citrate 50 MG TAKE 1 TABLET O RALLY DAILY NEEDED FOR SEXUAL ACTIVITY ADMINISTER 30 MIN TO 4 HRS BEFORE ACTIVITY Oral for 30 Active Lisinopril 20 MG TAKE 1 TABLET BY YANETH TH EVERY DAY Oral for 30 Active Immunizations Vaccine Route Administration Date Status Comme nts Influenza Unknown 10/24/2023 Refused Social History Tobacco Use: Social History Observation Description Date Details (start date - stop date) Never Smoker NA - NA Tobacco Use/Smoking Question Answer Notes Patient is a nonsmoker Alcohol Screen Question Answer Notes Did you have a drink contain ing alcohol in the past year? Yes How often did you have a dri nk containing alcohol in the past year? Monthly or less (1 point) How many drinks did you have on a typical day when you were drinking in the past year? 1 or 2 drinks (0 point) How often did you have 6 or more drinks on one occasion in the past year? Never (0 point) Points 1 Interpretation Negative Section Notes: Nonsmoker; no sig alcohol Problems Problem Type SNOMED Code ICD Code Onset Dates Problem Status W/U Status Risk Notes Problem Colon cancer screening (814837321) Colon cancer screening (Z12.11) Active confirmed Problem Pre-procedure evaluation check (984651377) Encounter for other preprocedural examination (Z01.818) Active confirmed Vital Signs Temperature 98.7 degrees Fahrenheit 10/24/19 24 Blood pressure systolic 000 mm Hg 10/24/19 24 Blood pressure diastolic 00 mm Hg 024 Height 6 ft in 10/24/2023 Weight 219 lbs 10/24/2023 BMI 29.70 kg/m2 10/24/2023 Encounters Encounter Location Date Provider Diagnosis [facility] [address] [place] [address] 10/24/2023 Miguel Arroyo Colon cancer screeni ng Z12.11 and Encounter for other preprocedural examination Z01.818 Assessments Encounter Date Diagnosis (ICD Code) Assessment Notes Treatment Notes Treatment Clinical Notes Section Notes 10/24/2023 Colon cancer screening (ICD-10 - Z12.11) Overall, Olga appears well. Given his age and good clinical appearance, I did recommend a colonoscopy for screening purposes. We did review the rationale for this in regard to colon cancer prevention. Full consent was obtained for this, including risks of bleeding and perforation. The procedure will be done with monitored anesthesia care. Olga was comfortable with this plan. Thank you again for allowing me to participate in Olga's care. I shall continue to keep you advised of his progress. 10/24/2023 Encounter for other preprocedural examination (ICD-10 - Z01.818) Overall, Olga appears well. Given his age and good clinical appearance, I did recommend a colonoscopy for screening purposes. We did review the rationale for this in regard to colon cancer prevention. Full consent was obtained for this, including risks of bleeding and perforation. The procedure will be done with monitored anesthesia care. Olga was comfortable with this plan. Thank you again for allowing me to participate in Olga's care. I shall continue to keep you advised of his progress. Plan Of Treatment Future Test Test Name Order Date COLONOSCOPY 10/24/2023 Next Appt Details Follow Up: prn, Reason: Progress Notes * OLGA SARAVIA KDOB:1975 (48 yo M)Acc No.[id number]:10/24/2023 Progress Notes Patient: OLGA BLANCO Provider: Oj Arroyo MD :1975 A ge:48 Y S ex:Male Date:10/24/2023 Address:[address] [place], [place] [id number] Pcp:Nj Strickland MD Subjective: * Chief Complaints: * P tj presents today for a colon screening * HPI: i ncontinence: I saw Olga in the office today for evaluation of colorectal cancer screening. A s you know, Olga is a generally healthy 48-year-old male who presently feels well other than intermittent back issues. He enjoys a good appetite, without any significant heartburn or dysphagia. His bowel movements have been regular and without any signs of bleeding. He denies any abdominal pain, jaundice, nor unintentional weight loss. He denies any known family history of colon cancer. He has never had a colonoscopy. Laboratories in June revealed a normal CBC, chemistries, and LFTs. * ROS: G eneral/Constitutional: Change in appetite d enies. C hills d enies. F atigue d enies. O phthalmologic: Comments a ll negative. E NT: Comments a ll negative. R espiratory: hemoptysis d enies. C ough d enies. ? C ardiovascular: Chest pain d enies. O rthopnea d enies. ? G astrointestinal: Comments S [facility] for details. G enitourinary: Hematuria d enies. D ysuria d enies. ? M usculoskeletal: Painful joints d enies. W eakness d enies. ? S kin: Itching d enies. R howie d enies. N eurologic: Headache d enies. S eizures d enies. ? P sychiatric: Comments a ll negative. * Medical History: * Surgical History: B ack surgery ack surgery 2011Ear surgery as a child Nasal polyps * Hospitalization/Major Diagno stic Procedure: N o Hospitalization History. * Family History: F ather: alive. M other: alive. No family history of colon cancer or liver cancer. * Social History: T obacco Use: T obacco Use/Smoking P jackient is a n onsmoker. D rugs/Alcohol: A lcohol Screen D id you have a drink containing alcohol in the past year? Y es, H ow often did you have a drink containing alcohol in the past year? M onthly or less (1 point), How many drinks did you have on a typical day when you were drinking in the past year? 1 or 2 drinks (0 point), H ow often did you have 6 or more drinks on one occasion in the past year??Never (0 point), P oints 1 , I nterpretation N egative. M iscellaneous: M arital status: . 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 N onsmoker; no sig alcohol. * Medications: T akingLisinopril 20 MG Tablet TAKE 1 TABLET BY MOUTH EVERY DAY Oral Sildenafil Citrate 50 MG Tablet TAKE 1 TABLET ORALLY DAILY NEEDED FOR SEXUAL ACTIVITY ADMINISTER 30 MIN TO 4 HRS BEFORE ACTIVITY Oral Cyclobenzaprine HCl 10 MG Tablet TAKE 1 TABLET BY MOUTH 3 TIMES A DAY NEEDED FOR MUSCLE SPASM Oral Medication List reviewed and reconciled with the patientTaking Lisinopril 20 MG Tablet TAKE 1 TABLET BY MOUTH EVERY DAY Oral Taking Sildenafil Citrate 50 MG Tablet TAKE 1 TABLET ORALLY DAILY NEEDED FOR SEXUAL ACTIVITY ADMINISTER 30 MIN TO 4 HRS BEFORE ACTIVITY Oral Taking Cyclobenzaprine HCl 10 MG Tablet TAKE 1 TABLET BY MOUTH 3 TIMES A DAY NEEDED FOR MUSCLE SPASM Oral Medication List reviewed and reconciled with the patient * Allergies: P enicillinyes[Allergies Verified] Objective: * Vitals: W t: 219 lbs, Ht: 6 ft, BMI:29.70 Index, BP: 000/00 mm Hg, Temp: 98.7. * Examination: G eneral Examination: GENERAL APPEARANCE: p leasant, well nourished, well developed, in no acute distress. EYES: s clera non-icteric. ORAL CAVITY: m ucosa moist. NECK/THYROID: n o cervical lymphadenopathy, neck supple.? SKIN: n onjaundiced, no spider angiomata. HEART: S 1, S2 normal. LUNGS: c lear to auscultation bilaterally. ABDOMEN: n ormal bowel sounds, no guarding or rigidity, no guarding or rigidity, no masses palpable, soft, nontender, nondistended. EXTREMITIES: n o edema. NEUROLOGIC: a lert and oriented. Assessment: * Assessment: 1. E ncounter for other preprocedural examination - Z01.818 (Primary) 2 . C olon cancer screening - Z12.11 Overall, Olga appears well. Given his age and good clinical appearance, I did recommend a colonoscopy for screening purposes. We did review the rationale for this in regard to colon cancer prevention. Full consent was obtained for this, including risks of bleeding and perforation. The procedure will be done with monitored anesthesia care. Olga was comfortable with this plan. Thank you again for allowing me to participate in Olga's care. I shall continue to keep you advised of his progress. Plan: * Treatment: * Immunizations: Influenza (Not administered - Refused: Patient decision) * Procedure Codes: 3 017F COLORECTAL CA SCREEN DOC [id number] TOBACCO NON-HLANR3802 BP SCR NOT PRFRM REC REASON NOS * Preventive Medicine: Counseling: C are goal follow-up plan: A melodie Normal BMI Follow-up G iving encouragement to exercise, B CO management provided Y es. * Follow Up: p rn * * Sign off status: Completed true * Provider: Oj Arroyo MD Date: 0 10/24/2023 Generated for Alie kelly/Christiana/Tiagoitting on: 0 12/31/2024 11:08 AM EDT History and Physical Notes * HPI (History of Present Illness) Category Sub-Category Detail Notes Category Not es incontinence I saw Olga in the office today for evaluation of colorectal cancer screening. As you know, Olga is a generally healthy 48-year-old male who presently feels well other than intermittent back issues. He enjoys a good appetite, without any significant heartburn or dysphagia. His bowel movements have been regular and without any signs of bleeding. He denies any abdominal pain, jaundice, nor unintentional weight loss. He denies any known family history of colon cancer. He has never had a colonoscopy. Laboratories in June revealed a normal CBC, chemistries, and LFTs. Examination Category Sub-Category Detail Notes Category Not es General Examination GENERAL APPEARANCE: pleasant , well nourished, well developed, in no acute distress HEAD: EYES: sclera non-icteric EARS: NOSE: THROAT: NECK/THYROID: no cervical lymphade nopathy, neck supple HEART: S1, S2 normal CHEST: LUNGS: clear to auscultatio n bilaterally ABDOMEN: normal bowel sounds, no guarding or rigidity, no guarding or rigidity, no masses palpable, soft, nontender, nondistended NEUROLOGIC: alert and oriented SKIN: nonjaundiced, no spi helen angiomata EXTREMITIES: no edema PERIPHERAL PULSES: BACK: BREASTS: MUSCULOSKELETAL: MALE GENITOURINARY: LYMPH NODES: RECTAL EXAM: FEMALE GENITOURINARY: ORAL CAVITY: mucosa moist
[2024-12-31 10:00] VITALS: BP 116/76; PULSE 84; RESP 18; TEMP 36.9; O2SAT 95; BMI 30.6
--- NOTE | 2024-12-31 10:00 | A.OFFPC_ITS ---
Vital Signs 12/31/24 10:00 Height 6 ft Weight 226 lb BMI 30.6 BP 116/76 Blood Pressure Location Lt brachial Position Sitting Respiration 18 Pulse 84 Pulse Source Pulse Oximeter Temp 98.5 F Temp Source Oral Pulse Oximetry (%) 95 Oxygen Delivery Method Room Air Intake Visit Reasons: Kecia Dr Strickland Consulting Psychologist Required: No Accompanied by: Self / Same As Patient Allergies penicillin V Allergy (Unknown, Verified 12/31/24 10:13) Unknown Medication List - Last Reconciled 12/31/24 by CARYN Arauz aspirin 81 mg PO DAILY cyclobenzaprine 10 mg PO TID PRN lisinopril 20 mg PO DAILY sildenafil (Viagra) 50 mg PO DAILY PRN Tobacco use date assessed: 12/31/24 Dental Screening Dental Screen Date: 12/31/24 Did you have a dental visit in the last 12 months?: Yes Did you have a dental problem in the last 6 months where you did not have access to dental care?: No Was dental information given to patient?: Patient has dentist HPI Kecia Dr Strickland HPI Details Patient is a 49 year old male. Former patient of Dr. Strickland, who retired. His significant past medical history of 2 back surgeries, HTN, PE after 1st back surgery status post ICU stay. Reports that his last surgery was around 2010 at [facility] with Dr. Ashley The patient is on cyclobenzaprine 10 mg t.i.d. p.r.n. Would like to something less sedated, reports trying gabapentin before and this worked better He denies chest pain, SOB, heart palpitation or dizziness Denies abdominal pain/change in bowel habits Denies urinary symptoms Reports that he had a colonoscopy recently [facility] Medical History Back pain Obesity Hypertension Surgical History History of nasal surgery History of ear surgery Previous back surgery Family History Mother No problems noted. Father No problems noted. Social History Housing: Condominium Alcohol intake: never Patient Tobacco Use Status: Never used Tobacco e-Cigarette/Vaping Use: Never Used Second Hand Smoke Exposure: No service: No Current occupational status: employed Cognitive needs: No Hearing needs: No Vision needs: No Questionnaire PHQ-9 Over the last 2 weeks, how often have you been bothered by any of the following problems? 1. Little interest or pleasure in doing things: not at all 2. Feeling down, depressed, or hopeless: not at all 3. Trouble falling or staying asleep, or sleeping too much: not at all 4. Feeling tired or having little energy: not at all 5. Poor appetite or overeating: not at all 6. Feeling bad about yourself - or that you are a failure or have let yourself or your family down: not at all 7. Trouble concentrating on things, such as reading the newspaper or watching television: not at all 8. Moving or speaking so slowly that other people could have noticed. Or the opposite - being so fidgety or restless that you have been moving around a lot more than usual: not at all 9. Thoughts that you would be better off or of hurting yourself in some way: not at all Total score: 0 Depression Screening Interpretation: Negative Depression Screening Done: Yes 86237 - PHQ-9 Billing: Yes Source: Developed by Drs. Miguel Burleson, Tawnya Nava, Andrea Barnes and colleagues, with an educational adelso from [employer]. Thrive Questionnaire Date Thrive assessed: 12/31/24 I am a: Patient What is your living situation today?: I have a steady place to live Within the past 12 months, did the food you bought not last and you didn't have the money to get more?: I choose not to answer this question Within the past 12 months, did you worry whether your food would run out before you got money to buy more?: Never true Do you have trouble paying for medicines?: No Do you have trouble getting transportation to medical appointments?: No Do you have trouble paying your heating and electricity bill?: No Do you have trouble taking care of your child, family member or friend?: No Do you have trouble with day-to-day activities such as bathing, preparing meals, shopping, managing finances, etc.?: No Are you currently unemployed and looking for a job?: No Are you interested in more education?: No Please select the resources that you would like help with: None Currently or been in a relationship where the following occur: I choose not to answer THRIVE Score: 0 AUDIT C Alcohol Use Questionnaire (AUDIT-C) 1. How often do you have a drink containing alcohol?: 2-4 times a month 2. How many drinks containing alcohol do you have on a typical day when you are drinking?: 1 or 2 3. How often do you have six or more drinks on one occasion?: Never Total Score: 2 Score Reviewed/Action Taken: No ROSE-7 AMB Questionnaire ROSE-7 Date ROSE - 7 assessed: 12/31/24 Feeling nervous, anxious, or on edge: 0 = Not at all Not being able to stop or control worryin = Not at all Worrying too much about different things: 0 = Not at all Trouble relaxin = Not at all Being so restless that it is hard to sit still: 0 = Not at all Becoming easily annoyed or irritable: 0 = Not at all Feeling afraid as if something awful might happen: 0 = Not at all Total ROSE-7 score (0-4 normal; 5-9 mild; 10-14 moderate; 15-21 severe): 0 Source: Developed by Drs. Miguel Burleson, Tawnya Nava, Andrea Barnes and colleagues, with an educational adelso from [employer]. ROSE-7 Assessment Billing ROSE-7 Assessment Tool: ROSE-7 Assessment 75772 Review of Systems Const Denies headache(s) Eyes Denies loss of vision ENT Denies vertigo, Denies dizziness, Denies headache(s) and Denies sore throat Card Denies chest pain, Denies leg edema and Denies lightheadedness Resp Denies cough, Denies hemoptysis and Denies wheezing GI Denies abdominal pain, Denies melena, Denies constipation, Denies diarrhea and Denies vomiting Denies dysuria, Denies urinary frequency and Denies urinary urgency Musc Denies arthralgias, Denies joint swelling, Denies numbness and Denies tingling Neuro Denies Abnormal speech present, Denies behavioral changes, Denies vertigo, Denies dizziness, Denies headache(s), Denies loss of vision, Denies memory loss, Denies numbness and Denies tingling Psych Denies anxiety, Denies behavioral changes, Denies depression, Denies memory loss and Denies panic attacks Uli/Lymph Denies easy bleeding and Denies easy bruising Aller/Immun Denies wheezing Physical exam (Primary Care) Vital Signs: Last Vital Signs Temp 98.5 F 12/31/24 10:00 Pulse 84 12/31/24 10:00 Resp 18 12/31/24 10:00 BP 116/76 12/31/24 10:00 Pulse Ox 95 12/31/24 10:00 Oxygen Delivery Method Room Air 12/31/24 10:00 BMI result Body Mass Index 30.6 Tobacco/Smoking Status: Tobacco use Status Tobacco use date assessed 12/31/24 12/31/24 10:09 Patient Tobacco Use Status Never used Tobacco 12/31/24 10:09 e-Cigarette/Vaping Use Never Used 12/31/24 10:09 PHQ-9: PHQ-9 Score PHQ-9: Total score 0 12/31/24 10:21 Depression Screening Interpretation: Negative Thrive Assessment: Date of Thrive Assessment Date Thrive assessed 12/31/24 12/31/24 10:09 Currently or been in a relationship where the following occur: I choose not to answer Const General: healthy appearing, no acute distress, alert and awake Nutritional Appearance: well nourished Orientation/consciousness: oriented to person, oriented to place and oriented to time HENMT Ears: TM's normal bilaterally General nose exam: Normal nasal mucous membranes and turbinates present Eyes Conjunctivae: conjunctivae normal Sclerae: sclerae normal Pupils: Equal, round and reactive pupils present Neck Neck: Yes no lymphadenopathy and Yes no JVD Thyroid: Thyroid normal Carotids: no bruits Resp Effort & Inspection: normal respiratory effort and not tachypneic Auscultation: no crackles, no rales, no rhonchi and no wheezes Cardio Rate: regular rate Rhythm: regular rhythm Heart sounds: no murmurs and normal S1 and S2 GI Palpation (GI): Soft to palpation, nontender, no hepatomegaly and no splenomegaly Auscultation: normal bowel sounds General: Yes no CVA tenderness Back/Spine/Pelvis Back: no CVA tenderness Thoracic/Lumbar Spine: No thoracic spinal tenderness and No lumbar spinal tenderness Skin General skin exam: no rashes or lesions noted and dry skin Neuro General: oriented to person, oriented to place and oriented to time Cranial nerves: Yes Equal, round and reactive pupils present Speech: No Abnormal speech present Gait exam (Neuro): Normal gait present Motor exam (neuro): no tremor noted Extrem Right upper extremity: full ROM Left upper extremity: full ROM Right lower extremity: full ROM; no edema Left lower extremity: full ROM; no edema Psych Mental Status: mental status grossly normal Speech and movement: Normal speech and movement present Affect: normal affect Attitude: cooperative Thought process: Normal thought process present Coding Level of Care Code Est Pt Level 3 (07465) Diagnoses Hypertension, unspecified type I10 Hypertension type: unspecified Class 1 obesity without serious comorbidity with body mass index (BMI) of 30.0 to 30.9 in adult, unspecified obesity type E66.811; Z68.30 Body mass index: BMI 30.0-30.9 Obesity classification: adult class 1 (BMI 30 - 34.9) Obesity type: unspecified obesity type Serious obesity comorbidity presence: without serious comorbidity Chronic bilateral low back pain without sciatica M54.50; G89.29 Back pain laterality: bilateral Back pain location: low back pain Sciatica presence: without sciatica Additional Codes ROSE-7 Assessment Billing - ROSE-7 Assessment Tool: ROSE-7 Assessment 13549 ([id number]) PHQ-9 - 58403 - PHQ-9 Billing: Yes ([id number]) Time Spent (min) 33 Assessment & Plan Assessment & Plan (1) Hypertension: Code(s): I10 - Essential (primary) hypertension Category: Medical Qualifiers: Hypertension type: unspecified Qualified Code(s): I10 - Essential (primary) hypertension Plan: Blood pressure within normal goes Reinforced low-salt diet Continue lisinopril 20 mg daily (2) Obesity: Code(s): E66.9 - Obesity, unspecified Category: Medical Qualifiers: Body mass index: BMI 30.0-30.9 Obesity classification: adult class 1 (BMI 30 - 34.9) Obesity type: unspecified obesity type Serious obesity comorbidity presence: without serious comorbidity Qualified Code(s): E66.811 - Obesity, class 1; Z68.30 - Body mass index [BMI] 30.0-30.9, adult Plan: Discussed lifestyle modifications including dietary changes and physical activity (3) Chronic back pain: Code(s): M54.9 - Dorsalgia, unspecified; G89.29 - Other chronic pain Category: Medical Qualifiers: Back pain laterality: bilateral Back pain location: low back pain Sciatica presence: without sciatica Qualified Code(s): M54.50 - Low back pain, unspecified; G89.29 - Other chronic pain Plan: Status post 2 back surgeries and multiple physical therapies Patient is currently taking cyclobenzaprine 10mg TID prn, unable to take this medication during the daytime He is looking for something else to help with the pain Will try him on gabapentin 100mg TID Orders: Orders Complete Blood Count Auto Diff Today E66.9 - Obesity, unspecified, G47.9 - Sleep disorder, unspecified, G89.29 - Other chronic pain, I10 - Essential (primary) hypertension, M54.9 - Dorsalgia, unspecified Comprehensive Met. Panel Today E66.9 - Obesity, unspecified, G47.9 - Sleep disorder, unspecified, G89.29 - Other chronic pain, I10 - Essential (primary) hypertension, M54.9 - Dorsalgia, unspecified TSH reflex Free T4 Today E66.9 - Obesity, unspecified, G47.9 - Sleep disorder, unspecified, G89.29 - Other chronic pain, I10 - Essential (primary) hypertension, M54.9 - Dorsalgia, unspecified UA CC w/rflx Micro + Cult Today E66.9 - Obesity, unspecified, G47.9 - Sleep disorder, unspecified, G89.29 - Other chronic pain, I10 - Essential (primary) hypertension, M54.9 - Dorsalgia, unspecified Vitamin D 25-OH Total Today E66.9 - Obesity, unspecified, G47.9 - Sleep disorder, unspecified, G89.29 - Other chronic pain, I10 - Essential (primary) hypertension, M54.9 - Dorsalgia, unspecified Hemoglobin A1c Today E66.9 - Obesity, unspecified, G47.9 - Sleep disorder, unspecified, G89.29 - Other chronic pain, I10 - Essential (primary) hypertension, M54.9 - Dorsalgia, unspecified Lipid Panel Today E66.9 - Obesity, unspecified, G47.9 - Sleep disorder, unspecified, G89.29 - Other chronic pain, I10 - Essential (primary) hype rtension, M54.9 - Dorsalgia, unspecified Medications: New gabapentin 100 mg PO TID 90 caps 2RF
== END 2024-12-31 10:45 | disposition home or self-care (01) ==
LOC: HO.HMCH 09:59
PROVIDERS: PCP Internal Medicine
DX: I10 Essential (primary) hypertension (principal); E66.811 Obesity, class 1; Z68.30 Body mass index [BMI] 30.0-30.9, adult; M54.50 Low back pain, unspecified; G89.29 Other chronic pain

== ENCOUNTER → 2024-12-31 09:58 | Outpatient (BNVA) | payer BC, SELFPAY | PROVIDERS: PCP Internal Medicine | DX: I10 Essential (primary) hypertension (principal); E66.811 Obesity, class 1; M54.50 Low back pain, unspecified; G89.29 Other chronic pain; Z68.30 Body mass index [BMI] 30.0-30.9, adult | CPT/HCPCS: 96127 ==

== ENCOUNTER 2025-06-29 15:12 | Outpatient (AMB) | payer BC, SELFPAY ==
--- OUTSIDE RECORDS SUMMARY | 2024-02-01 06:00 | XMS_ITS ---
Author Organization [facility] Address [address] [place] [address] Care Team Providers Care Mixer Blender Name Role Phone Nj Strickland MD Primary Care Provider Miguel Tucker Unavailable [phone] REASON FOR VISIT screening colon Problems Problem Type SNOMED Code ICD Code Onset Dates Problem Status W/U Status Risk Notes Problem Diverticular disease of colon (410944494) Diverticulosis of large intestine without perforation or abscess without bleeding (K57.30) Active confirmed Encounters Encounter Location Date Provider Diagnosis [facility] [address] [id number] 02/01/2024 Miguel Arroyo Colon cancer scree naheed Z12.11 ; Diverticulosis of large intestine without perforation or abscess without bleeding K57.30 and Other hemorrhoids K64.8 Assessments Encounter Date Diagnosis (ICD Code) Assessment Notes Treatment Notes Treatment Clinical Notes Section Notes 02/01/2024 Colon cancer screening (ICD-10 - Z12.11) 02/01/2024 Diverticulosis of large intestine without perforation or abscess without bleeding (ICD-10 - K57.30) 02/01/2024 Other hemorrhoids (ICD-10 - K64.8) Plan Of Treatment No Information Progress Notes * OLGA SARAVIA KDOB:1975 (50 yo M)Acc No.[id number]:02/01/2024 COLON WITH MAC Patient: Ness FREY OLGA Susana Provider: Oj Arroyo MD :1975 A ge:48 Y S ex:Male Date:02/01/2024 Address:[address] [place] [address] Pcp:Nj Strickland MD Subjective: * Chief Complaints: * S creening colon Assessment: * Assessment: 1. C olon cancer screening - Z12.11 (Primary) 2 . D iverticulosis of large intestine without perforation or abscess without bleeding - K57.30 3 . O ther hemorrhoids - K64.8 Plan: * Procedure Codes: 4 5378 DIAGNOSTIC COLONOSCOPY, Modifiers: 33 Billing Information: * Procedure Codes: 26078 DIAGNOSTIC COLONOSCOPY. Modifiers: 33 * The named appointment provid er may or may not be the originator of this progress note, and it is not deemed complete until electronically signed by the appointment provider. Sign off status: Pending * Provider: Oj Arroyo MD Date: 0 02/01/2024 Generated for Alie kelly/Christiana/Tiagoitting on: 1 08/30/2024 09:44 PM EST
--- NOTE | 2025-06-29 15:21 | MHC.PC.OV ---
Vital Signs 06/29/25 15:24 Height 6 ft Weight 230 lb BMI 31.2 BP 138/80 Blood Pressure Location Lt brachial Position Sitting Respiration 18 Pulse 82 Pulse Source Pulse Oximeter Temp Source Temporal Artery Scan Pulse Oximetry (%) 95 Oxygen Delivery Method Room Air Intake Visit Reasons: annual exam Surgical Tech Required: No Accompanied by: Self / Same As Patient Allergies penicillin V Allergy (Unknown, Verified 06/29/25 15:35) Unknown Medication List - Last Reconciled 06/29/25 by CARYN Arauz aspirin 81 mg PO DAILY cyclobenzaprine 10 mg PO TID PRN gabapentin 100 mg PO TID lisinopril 20 mg PO DAILY sildenafil (Viagra) 50 mg PO DAILY PRN Tobacco use date assessed: 06/29/25 Dental Screening Dental Screen Date: 06/29/25 Did you have a dental visit in the last 12 months?: Yes Did you have a dental problem in the last 6 months where you did not have access to dental care?: No Was dental information given to patient?: Patient has dentist HPI annual exam HPI Details Dentist: up to date, two weeks ago Eye: January, Snellen: Right: Left: Corrected vision: readers STI screening: Colonoscopy: January, Pap Smer:n/a PHQ-9: Flu: has not for a while COVID: x3 Tdap: within 10 years Diet: regular Exercise: Does not workout PFSH Medical History Back pain Obesity Hypertension Surgical History History of nasal surgery History of ear surgery Previous back surgery Family History Mother No problems noted. Father No problems noted. Social History Housing: Condominium Alcohol intake: never Patient Tobacco Use Status: Never used Tobacco e-Cigarette/Vaping Use: Never Used Second Hand Smoke Exposure: No service: No Current occupational status: employed Cognitive needs: No Hearing needs: No Vision needs: No Questionnaire Thrive Questionnaire Date Thrive assessed: 06/29/25 I am a: Patient What is your living situation today?: I have a steady place to live Within the past 12 months, did the food you bought not last and you didn't have the money to get more?: I choose not to answer this question Within the past 12 months, did you worry whether your food would run out before you got money to buy more?: Never true Do you have trouble paying for medicines?: No Do you have trouble getting transportation to medical appointments?: No Do you have trouble paying your heating and electricity bill?: No Do you have trouble taking care of your child, family member or friend?: No Do you have trouble with day-to-day activities such as bathing, preparing meals, shopping, managing finances, etc.?: No Are you currently unemployed and looking for a job?: No Are you interested in more education?: No Please select the resources that you would like help with: None Currently or been in a relationship where the following occur: I choose not to answer THRIVE Score: 0 ROSE-7 AMB Questionnaire ROSE-7 Date ROSE - 7 assessed: 12/31/24 Source: Developed by Drs. Miguel Burleson, Tawnya Nava, Andrea Barnes and colleagues, with an educational adelso from [employer]. Review of Systems Const Denies headache(s) Eyes Denies loss of vision ENT Denies vertigo, Denies dizziness, Denies headache(s) and Denies sore throat Card Denies chest pain, Denies leg edema and Denies lightheadedness Resp Denies cough, Denies hemoptysis and Denies wheezing GI Denies abdominal pain, Denies melena, Denies constipation, Denies diarrhea and Denies vomiting Denies dysuria, Denies urinary frequency and Denies urinary urgency Musc Denies arthralgias, Denies joint swelling, Denies numbness and Denies tingling Neuro Denies Abnormal speech present, Denies behavioral changes, Denies vertigo, Denies dizziness, Denies headache(s), Denies loss of vision, Denies memory loss, Denies numbness and Denies tingling Psych Denies anxiety, Denies behavioral changes, Denies depression, Denies memory loss and Denies panic attacks Uli/Lymph Denies easy bleeding and Denies easy bruising Aller/Immun Denies wheezing Physical exam (Primary Care) Vital Signs: Last Vital Signs Pulse 82 06/29/25 15:24 Resp 18 06/29/25 15:24 BP 138/80 06/29/25 15:24 Pulse Ox 95 06/29/25 15:24 Oxygen Delivery Method Room Air 06/29/25 15:24 BMI result Body Mass Index 31.2 Tobacco/Smoking Status: Tobacco use Status Tobacco use date assessed 06/29/25 06/29/25 15:34 Patient Tobacco Use Status Never used Tobacco 06/29/25 15:22 e-Cigarette/Vaping Use Never Used 06/29/25 15:22 Thrive Assessment: Date of Thrive Assessment Date Thrive assessed 06/29/25 06/29/25 15:34 Currently or been in a relationship where the following occur: I choose not to answer Const General: healthy appearing, no acute distress, alert and awake Nutritional Appearance: well nourished Orientation/consciousness: oriented to person, oriented to place and oriented to time HENMT Ears: TM's normal bilaterally General nose exam: Normal nasal mucous membranes and turbinates present Eyes Conjunctivae: conjunctivae normal Sclerae: sclerae normal Pupils: Equal, round and reactive pupils present Neck Neck: Yes no lymphadenopathy and Yes no JVD Thyroid: Thyroid normal Carotids: no bruits Resp Effort & Inspection: normal respiratory effort and not tachypneic Auscultation: no crackles, no rales, no rhonchi and no wheezes Cardio Rate: regular rate Rhythm: regular rhythm Heart sounds: no murmurs and normal S1 and S2 GI Palpation (GI): Soft to palpation, nontender, no hepatomegaly and no splenomegaly Auscultation: normal bowel sounds General: Yes no CVA tenderness Back/Spine/Pelvis Back: no CVA tenderness Thoracic/Lumbar Spine: No thoracic spinal tenderness and No lumbar spinal tenderness Skin General skin exam: no rashes or lesions noted and dry skin Neuro General: oriented to person, oriented to place and oriented to time Cranial nerves: Yes Equal, round and reactive pupils present Speech: No Abnormal speech present Gait exam (Neuro): Normal gait present Motor exam (neuro): no tremor noted Deep tendon reflexes (DTR's): Right triceps reflex intensity grade: 2+, Left triceps reflex intensity grade: 2+, Rt Biceps (C5, C6): 2+, Left biceps reflex intensity grade: 2+, Right brachioradialis reflex intensity grade: 2+, Left brachioradialis reflex intensity grade: 2+, Right patellar reflex intensity grade: 2+ and Left patellar reflex intensity grade: 2+ Extrem Right upper extremity: full ROM Left upper extremity: full ROM Right lower extremity: full ROM; no edema Left lower extremity: full ROM; no edema Psych Mental Status: mental status grossly normal Speech and movement: Normal speech and movement present Affect: normal affect Attitude: cooperative Thought process: Normal thought process present Coding Level of Care Code Est Pt Prev Care 40-64y([id number]) Diagnoses Physical exam Z00.00 Hypertension, unspecified type I10 Hypertension type: unspecified Class 1 obesity without serious comorbidity with body mass index (BMI) of 30.0 to 30.9 in adult, unspecified obesity type E66.811; Z68.30 Body mass index: BMI 30.0-30.9 Obesity classification: adult class 1 (BMI 30 - 34.9) Obesity type: unspecified obesity type Serious obesity comorbidity presence: without serious comorbidity Chronic bilateral low back pain without sciatica M54.50; G89.29 Back pain laterality: bilateral Back pain location: low back pain Sciatica presence: without sciatica Time Spent (min) 36 Assessment & Plan Assessment & Plan (1) Physical exam: Code(s): Z00.00 - Encounter for general adult medical examination without abnormal findings Category: Medical Plan: Preventative guidelines reviewed with the patient. Patient is up-to-date on his screenings and vaccinations. Encouraged the patient to complete preordered labs as soon as possible for a more comprehensive evaluation of his health. (2) Hypertension: Code(s): I10 - Essential (primary) hypertension Category: Medical Qualifiers: Hypertension type: unspecified Qualified Code(s): I10 - Essential (primary) hypertension Plan: Blood pressure within normal goes Reinforced low-salt diet Continue lisinopril 20 mg daily (3) Obesity: Code(s): E66.9 - Obesity, unspecified Category: Medical Qualifiers: Body mass index: BMI 30.0-30.9 Obesity classification: adult class 1 (BMI 30 - 34.9) Obesity type: unspecified obesity type Serious obesity comorbidity presence: without serious comorbidity Qualified Code(s): E66.811 - Obesity, class 1; Z68.30 - Body mass index [BMI] 30.0-30.9, adult Plan: Discussed lifestyle modifications including dietary changes and physical activity (4) Chronic back pain: Code(s): M54.9 - Dorsalgia, unspecified; G89.29 - Other chronic pain Category: Medical Qualifiers: Back pain laterality: bilateral Back pain location: low back pain Sciatica presence: without sciatica Qualified Code(s): M54.50 - Low back pain, unspecified; G89.29 - Other chronic pain Plan: Status post 2 back surgeries and multiple physical therapies Patient is currently taking cyclobenzaprine 10mg TID prn, unable to take this medication during the daytime He is looking for something else to help with the pain gabapentin 100mg TID was ordered
[2025-06-29 15:24] VITALS: BP 138/80; PULSE 82; RESP 18; O2SAT 95; BMI 31.2
--- OUTSIDE RECORDS SUMMARY | 2025-06-29 21:44 | XMS_ITS | Patient Health Record ---
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 Name Role Phone Nj Strickland MD Primary Care Provider Miguel Tucker Unavailable [phone] Allergies Allergen (clinical drug ingredient) Drug/Non Drug Allergy documented on EMR Reaction Allergy Type Onset Date Status Penicillin Unknown Drug Allergy Active Reason For Referral No Information Medications Medication SIG (Take, Route, Frequency, Duration) Notes Start Date End Date Status Cyclobenzaprine HCl 10 MG Tablet TAKE 1 TABLET BY MOUTH 3 TIMES A DAY NEEDED FOR MUSCLE SPASM Oral; Duration: 10 Active Sildenafil Citrate 50 MG Tablet TAKE 1 TABLET ORALLY DAILY NEEDED FOR SEXUAL ACTIVITY ADMINISTER 30 MIN TO 4 HRS BEFORE ACTIVITY Oral; Duration: 30 Active Lisinopril 20 MG Tablet TAKE 1 TABLET BY MOUTH EVERY DAY Oral; Duration: 30 Active Immunizations Vaccine Route Administration Date Status Comme nts Influenza Unknown 10/24/2023 Refused Social History Tobacco Use: Social History Observation Description Date Details (start date - stop date) Never Smoker NA - NA Social History Drugs/Alcohol: Social Info Question Answer Notes Alcohol Screen Did you have a drink containing alcohol in the past year? Yes How often did you have a drink containing alcohol in the past year? Monthly or less (1 point) How many drinks did you have on a typical day when you were drinking in the past year? 1 or 2 drinks (0 point) How often did you have 6 or more drinks on one occasion in the past year? Never (0 point) Points 1 Interpretation Negative Tobacco Use: Social Info Question Answer Notes Tobacco Use/Smoking Patient is a nonsmoker Additional Details Category Social Info Options Details Miscellaneous: Marital status: Occupation: Works full-time [employer] Section Notes: Nonsmoker; no sig alcohol Problems Problem Type SNOMED Code ICD Code Onset Dates Problem Status W/U Status Risk Notes Problem Colon cancer screening (616284497) Colon cancer screening (Z12.11) Active confirmed Problem Pre-procedure evaluation check (248782453) Encounter for other preprocedural examination (Z01.818) Active confirmed Problem Diverticular disease of colon (056776668) Diverticulosis of large intestine without perforation or abscess without bleeding (K57.30) Active confirmed Plan Of Treatment Future Test Test Name Order Date COLONOSCOPY 10/24/2023 Insurance Providers Payer Name Payer Address Payer Phone Subscriber Number Group Number Insured Name Patient Relationship to Insured Coverage Start Date Coverage End Date [facility] [address] [place] [address] [id number] OLGA SARAVIA Self - patient is the insured Medical (General) History Medical History History ICD Code HTN Back pain Denies DC,DM,CVA,Lung disease,renal dise ase Surgical History Surgery Date(Month/Year) Back surgery 2009 Back surgery 2011 Ear surgery as a child Nasal polyps
== END 2025-06-29 15:59 | disposition home or self-care (01) ==
LOC: HO.HMCH 15:13
DX: Z00.00 Encounter for general adult medical examination without abnormal findings (principal); I10 Essential (primary) hypertension; E66.811 Obesity, class 1; Z68.30 Body mass index [BMI] 30.0-30.9, adult; M54.50 Low back pain, unspecified; G89.29 Other chronic pain